=== PATIENT | male | born 2000 | race Hispanic/Latino ===

== ENCOUNTER 2022-06-29 03:28 | Emergency (ER) | payer SELFPAY ==
[2022-06-29] MEDS ORDERED: Ondansetron PF 4 MG/2 ML Vial ONE (03:59)
== END 2022-06-29 05:07 | disposition home or self-care (01) ==
LOC: CSHERS 03:28
DX: F10.129 Alcohol abuse with intoxication, unspecified (principal)
CPT/HCPCS: 96374; J2405